=== PATIENT | female | born 1995 | race Caucasian/White ===

== ENCOUNTER 2017-10-24 17:00 | Emergency (ER) | payer OTHER ==
[2017-10-24 17:11] VITALS: BP 118/76
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
== END 2017-10-24 18:14 | disposition home or self-care (01) ==
DX: F41.9 Anxiety disorder, unspecified (principal)